=== PATIENT | male | born 1965 | race Two or more races ===

== ENCOUNTER 2023-09-06 05:12 | Day surgery (SDC) | payer OTHER ==
[2023-09-05 15:40] VITALS: BMI 23.6
[2023-09-06] MEDS ORDERED: LIDOCAINE HCL/PF 1% SDV 5ML VIAL ONE (07:19)
[2023-09-06] MEDS ORDERED: DEXAMETHASONE SOD PHOSPHATE 10 MG/1 ML VIAL ONE (07:19)
[2023-09-06 09:11] VITALS: TEMP 97.7
[2023-09-06] MEDS ORDERED: DEXAMETHASONE SOD PHOSPHATE 10 MG/1 ML VIAL IM ONE (10:40)
[2023-09-06] MEDS ORDERED: IOHEXOL 180 MG/1 ML ML IJ ONE (10:40)
[2023-09-06] MEDS ORDERED: LIDOCAINE HCL 1%, 10 MG/ML (50 mL VIAL) NR ONE (10:40)
[2023-09-06 11:33] VITALS: BP 141/69; PULSE 63
[2023-09-06 11:35] VITALS: RESP 16
[2023-09-06] MEDS ORDERED: ACETAMINOPHEN 500 MG TABLET (FP) PO PRN (15:11)
== END 2023-09-06 11:47 | disposition home or self-care (01) ==
LOC: JASU-SURG 05:12
PROVIDERS: ATTEND Pain Medicine Pain Medicine
PROC: 3E0R3BZ Introduction of Anesthetic Agent into Spinal Canal, Percutaneous Approach (ICD-10-PCS; 2023-09-06)
PROC: 3E0R33Z Introduction of Anti-inflammatory into Spinal Canal, Percutaneous Approach (ICD-10-PCS; principal; 2023-09-06 10:00)
DX: M54.16 Radiculopathy, lumbar region (principal)
CPT/HCPCS: 76000-TC-FY; J1100